=== PATIENT | male | born 1945 | race Caucasian/White ===

== ENCOUNTER → 2017-09-18 | Outpatient (CLI) | payer OTHER, MEDICARE | END | disposition home or self-care (01) | LOC: GMAB 10:59 | PROVIDERS: ATTEND Family Medicine | DX: Z00.01 Encounter for general adult medical examination with abnormal findings (principal); I10 Essential (primary) hypertension; E78.5 Hyperlipidemia, unspecified; Z12.5 Encounter for screening for malignant neoplasm of prostate ==

== ENCOUNTER → 2017-09-20 | Outpatient (CLI) | payer OTHER, MEDICARE ==
--- NOTE | 2017-09-21 15:01 | RAD ---
EXAM DESCRIPTION: Knee,Left Complete CLINICAL HISTORY: KNEE PAIN COMPARISON: September 23, 2015 Findings: 4 standing views of the left knee show no evidence of acute fracture, focal bone destruction, or joint dislocation. There is prominent moderate narrowing of the medial tibiofemoral compartment with mild medial and lateral compartment joint line osteophytes. Mild flattening and irregularity of the weightbearing articular surface of the medial condyle is seen. Osteophyte of the posterior patella are seen without significant narrowing of the patellofemoral compartment. IMPRESSION: Interval worsening of now moderate to severe osteoarthritic changes of the left medial tibiofemoral compartment. Mild osteophytic changes of the patellofemoral and lateral tibiofemoral compartments. Electronically signed by: Angel Zhang MD 09/21/2017 2:59 PM [facility]
--- NOTE | 2017-09-21 15:02 | RAD ---
EXAM DESCRIPTION: Pelvis CLINICAL HISTORY: HIP PAIN COMPARISON: None FINDINGS: Single frontal view the pelvis. No fracture, dislocation or aggressive bone lesion is present. Bone mineralization is normal. Mild bilateral degenerative sacroiliitis. No erosions are seen. No gross soft tissue abnormality. IMPRESSION: Negative for acute pathology. Mild bilateral degenerative sacroiliac disease. No advanced osteoarthritis of the hip joints. Electronically signed by: Jey Harris MD 09/21/2017 3:00 PM [facility]
== END | disposition home or self-care (01) ==
LOC: RAD 09:17
PROVIDERS: ATTEND Orthopaedic Surgery
DX: M25.562 Pain in left knee (principal); M25.552 Pain in left hip

== ENCOUNTER → 2019-01-06 | Outpatient (CLI) | payer OTHER, MEDICARE | LOC: GMAE 10:41 | PROVIDERS: ATTEND Family Medicine | DX: Z00.01 Encounter for general adult medical examination with abnormal findings (principal) ==

== ENCOUNTER → 2019-01-07 | Outpatient (CLI) | payer MEDICARE, OTHER ==
--- NOTE | 2019-01-08 10:27 | US ---
EXAM DESCRIPTION: Aorta: Ultrasound. CLINICAL HISTORY: ENCOUNTER FOR SCREENING FOR OTHER DISORDER COMPARISON: None. TECHNIQUE: Transcutaneous scanning: Two-dimensional and Doppler modes. FINDINGS: Abdominal aorta diameter - Proximal: 2.8 x 2.4 cm. Mid: 2.4 x 1.9 cm. Distal: 2.0 x 1.9 cm. Common Iliac diameter - Right: 10 mm. Left: 10 mm. Other: Minimal intimal wall thickening.. IMPRESSION: Rad [facility] Best Practice recommendations: 2.8 cm abdominal aortic aneurysm suspected in the proximal abdominal aorta. Recommend follow-up every 5 years. Reference: J Vasc Surg 2009 Oct;50(4 Suppl):S2-49. Electronically signed by: Capo Epperson MD 01/08/2019 10:24 AM [facility]
== END ==
LOC: US 10:01
PROVIDERS: ATTEND Family Medicine
DX: Z13.89 Encounter for screening for other disorder (principal)

== ENCOUNTER 2019-01-22 16:48 | Outpatient (CLI) | payer OTHER, MEDICARE ==
[2019-01-22 18:56] VITALS: BP 182/72; TEMP 97; O2SAT 96
== END 2019-01-22 18:00 | disposition home or self-care (01) ==
LOC: TXRM 16:48
PROVIDERS: ATTEND Family Medicine
DX: C61 Malignant neoplasm of prostate (principal)

== ENCOUNTER → 2019-02-20 | Outpatient (CLI) | payer OTHER, MEDICARE ==
--- NOTE | 2019-02-20 14:22 | RAD ---
4 views left knee Indication: KNEE PN Comparison: September 20, 2017 Impression: Progressive moderate to severe medial knee compartment osteoarthritis with near [id number] appearance. Moderate narrowing patellofemoral compartment mild narrowing lateral compartment. Small to moderate tricompartmental joint line osteophytes. Moderate size knee effusion. No acute fracture. Mild varus angulation of the knee. Electronically signed by: Bradly Art MD 02/20/2019 2:19 PM CDT
== END ==
LOC: RAD 08:09
PROVIDERS: ATTEND Orthopaedic Surgery
DX: M17.12 Unilateral primary osteoarthritis, left knee (principal)

== ENCOUNTER → 2019-05-05 | Outpatient (CLI) | payer MEDICARE, OTHER | LOC: GMAE 17:39 | PROVIDERS: ATTEND Family Medicine | DX: I48.2 Chronic atrial fibrillation (principal) ==

== ENCOUNTER → 2019-05-07 | Outpatient (CLI) | payer MEDICARE, OTHER | LOC: RESP 10:04 | PROVIDERS: ATTEND Family Medicine | DX: I48.2 Chronic atrial fibrillation (principal) ==

== ENCOUNTER → 2019-07-23 | Outpatient (CLI) | payer OTHER | LOC: GMAE 10:34 | PROVIDERS: ATTEND Family Medicine | DX: C61 Malignant neoplasm of prostate (principal) ==

== ENCOUNTER → 2019-10-27 | Outpatient (CLI) | payer OTHER | LOC: GMAE 16:56 | PROVIDERS: ATTEND Family Medicine | DX: C61 Malignant neoplasm of prostate (principal) ==

== ENCOUNTER 2020-04-03 15:43 | Emergency (ER) | payer OTHER ==
--- NOTE | 2020-04-03 15:47 | ED.PDOC ---
History of Present Illness - General Time Seen by Provider: 04/03/20 15:46 Source: patient - History of Present Illness Initial Comments: 74 YO male with PMH of HTN, HLD who presents with chief complaint of left shoulder pain. Sudden onset approximately 20 minutes ago while sitting down at rest, located to posterior left shoulder blade region, came on suddenly and lasted for several minutes, described as sharp pain, 8 out of 10 severity, radiated down the upper portion of the left arm, not worse with exertion or with movement of the left arm, no meds taken for relief. Pain lasted for several minutes and resolve spontaneously on his way to the ED. Currently reports 0 out of 10 pain. Denies any chest pain, dyspnea, fevers, chills, sore throat, abdominal pain, nausea, vomiting, leg swelling, urinary symptoms. Denies any recent injury or trauma to the shoulder. No history of similar symptoms in the past. Takes medication for cholesterol and high blood pressure but denies any known history of ND/CAD. PCP is Dr. Lynn. Allergies/Adverse Reactions: Allergies Penicillins Allergy (Verified 04/03/20 16:18) Home Medications: Ambulatory Orders Cyclobenzaprine HCl [Flexeril] 10 mg PO Q8H PRN 30 Days #30 tab 04/03/20 Review of Systems - Review of Systems Review of Systems: 04/03/20 16:00 as per HPI All other Systems: Reviewed and Negative Family Medical History - Family History Mother Family History: No Known Living Status: Physical Exam - Physical Exam General Appearance: Alert, Comfortable, No apparent distress Eye Exam: bilateral normal Ears, Nose, Throat: hearing grossly normal, normal ENT inspection, normal pharynx Neck: non-tender, full range of motion, supple, normal inspection Respiratory: chest non-tender, lungs clear, normal breath sounds, no respiratory distress, no accessory muscle use Cardiovascular/Chest: normal peripheral pulses, regular rate, rhythm, no edema, no gallop, no JVD, no murmur Peripheral Pulses: radial,right: 2+, radial,left: 2+ Gastrointestinal/Abdominal: non tender, soft, no organomegaly Back Exam: normal inspection, no CVA tenderness, no vertebral tenderness Extremity: normal range of motion, non-tender, normal inspection, no pedal edema, no calf tenderness, normal capillary refill 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 Consider also ACS, pneumonia, CHF, cervical radiculopathy, rotator cuff injury, shoulder fracture, other. -Patient stable, NAD, vitals reveal elevated blood pressure 170s/90s but otherwise WNL. Exam pretty unremarkable. -Obtain cardiac work-up, blood work, x-ray chest and left shoulder. 04/03/20 17:05 -Patient remains stable, states no further return of pain, blood pressure remains elevated 170s/80s, vitals otherwise WNL -Blood work is reassuring, initial troponin 0.02, K 3.3 (replaced orally). Patient does have Cr level of 1.47. No prior labs in our system for comparison but suspect chronic in nature (CKD). Pt states his PCP follows his kidney function and he has seen a ingredient scaler helper as an outpatient consultation in the past. -Plan to repeat troponin and EKG in ED. If unchanged and symptoms do not recur, will likely plan to discharge home with close outpatient follow-up. 04/03/20 17:08 -Repeat EKG and troponin level unchanged, patient remained stable, still no return of pain. -Discussed diagnosis of muscle spasm of left shoulder. Advised good hydration, OTC Tylenol as needed, and will give as needed Rx of Flexeril. -DC to home in good condition, return warnings discussed. Ethan Stewart MD Billing #[id number] 04/03/20 15:55 Sodium Chloride 0.9% (Flush) [Saline Flush Syringe] 10 ml IV PRN PRN 04/03/20 16:00 EKG STAT 04/03/20 17:30 EKG STAT 04/04/20 09:00 Pulse Ox Daily Laboratory Results - last 24 hr 04/03/20 04/03/20 04/03/20 16:04 16:04 16:04 WBC 7.0 RBC 5.16 Hgb 16.3 Hct 48.6 MCV 94.1 H MCH 31.7 H MCHC 33.7 RDW 14.0 Plt Count 243 MPV 7.9 Absolute Neuts (auto) 4.40 Absolute Lymphs (auto) 1.80 Absolute Monos (auto) 0.50 Absolute Eos (auto) 0.20 Absolute Basos (auto) 0.10 Neutrophils % 62.7 Lymphocytes % 26.3 Monocytes % 7.3 Eosinophils % 2.7 Basophils % 1.0 Sodium 139 Potassium 3.3 L Chloride 107 Carbon Dioxide 24 Anion Gap 11.3 L BUN 23 H Creatinine 1.47 H BUN/Creatinine Ratio 15.6 Random Glucose 133 H Serum Osmolality 283.1 Calcium 9.0 Total Bilirubin 0.6 AST 20 ALT 20 Alkaline Phosphatase 61 Troponin I < 0.02 B-Natriuretic Peptide 23.8 Serum Total Protein 7.2 Albumin 4.0 Globulin 3.2 Albumin/Globulin Ratio 1.3 04/03/20 17:34 WBC RBC Hgb Hct MCV MCH MCHC RDW Plt Count MPV Absolute Neuts (auto) Absolute Lymphs (auto) Absolute Monos (auto) Absolute Eos (auto) Absolute Basos (auto) Neutrophils % Lymphocytes % Monocytes % Eosinophils % Basophils % Sodium Potassium Chloride Carbon Dioxide Anion Gap BUN Creatinine BUN/Creatinine Ratio Random Glucose Serum Osmolality Calcium Total Bilirubin AST ALT Alkaline Phosphatase Troponin I < 0.02 B-Natriuretic Peptide Serum Total Protein Albumin Globulin Albumin/Globulin Ratio - EKG/XRAY/CT EKG: Sinus - NSR, HR 80, no ST elevations, possible Q wave in lead V3 and inferior leads indicative of old ND, left axis deviation, intervals normal, no prior EKG for comparison. XRAY: chest - No acute processes per my read - Additional EKG/XRAY/Consults XRAY #2: Shoulder, Left - No acute processes per my read Departure - Departure Clinical Impression: Muscle spasm Time of Disposition: 17:44 Disposition: Discharge to Home or Self Care Condition: Good Instructions: Muscle Spasms (DC) Diet: resume usual diet Activity: increase activity as tolerated Referrals: KENDRICK LYNN MD [Primary Care Provider] - 1-2 Weeks Prescriptions: Cyclobenzaprine HCl [Flexeril] 10 mg PO Q8H PRN 30 Days #30 tab PRN Reason: Muscle Spasms Home Medications: Ambulatory Orders Cyclobenzaprine HCl [Flexeril] 10 mg PO Q8H PRN 30 Days #30 tab 04/03/20 Additional Instructions: Remain well-hydrated and advance diet and activity level as tolerated. Continue taking OTC meds for pain relief such as Tylenol 650 mg every 6 hours as needed. You may take the prescribed Flexeril as needed for muscle spasms. Do not drive or operate heavy machinery while taking as it may make you drowsy. Return to the ED right away if you develop any concerning symptoms such as chest pain, shortness of breath, fevers, cough, etc. Follow-up with your primary care doctor is recommended in the next 5 to 7 days for repeat evaluation of your symptoms and to also recheck your blood pressure.
[2020-04-03] MEDS ORDERED: SODIUM CHLORIDE 0.9% (FLUSH) 10 ML SYG IV PRN (15:55)
[2020-04-03] MEDS ORDERED: POTASSIUM CHLORIDE 20 MEQ TAB PO ONE (16:26)
--- NOTE | 2020-04-03 16:35 | RAD ---
EXAM DESCRIPTION: XR Chest,1 View (accession [id number]), XR Shoulder, Left 2 Views (accession [id number]) CLINICAL HISTORY: 74 years Male, acute left shoulder pain COMPARISON: None. FINDINGS: An upright portable view of the chest shows the lungs to be clear except for minimal linear stranding in the lung bases. Heart size appears borderline prominent, although accentuated by technique. There is atherosclerotic change in the thoracic aorta. No evidence of congestive heart failure. Possible slight eventration of the right hemidiaphragm. 2 views of the left shoulder demonstrate no evidence of acute fracture or dislocation or destructive bony lesion. The glenohumeral and acromioclavicular joint spaces appear maintained. There is minimal hypertrophic bony change about the AC joint. IMPRESSION: 1. No radiographic evidence of acute cardiopulmonary disease. 2. No significant bony abnormality identified in the left shoulder. Electronically signed by: Jared Solomon MD 04/03/2020 4:34 PM CDT
--- NOTE | 2020-04-03 16:36 | RAD ---
EXAM DESCRIPTION: XR Chest,1 View (accession [id number]), XR Shoulder, Left 2 Views (accession [id number]) CLINICAL HISTORY: 74 years Male, acute left shoulder pain COMPARISON: None. FINDINGS: An upright portable view of the chest shows the lungs to be clear except for minimal linear stranding in the lung bases. Heart size appears borderline prominent, although accentuated by technique. There is atherosclerotic change in the thoracic aorta. No evidence of congestive heart failure. Possible slight eventration of the right hemidiaphragm. 2 views of the left shoulder demonstrate no evidence of acute fracture or dislocation or destructive bony lesion. The glenohumeral and acromioclavicular joint spaces appear maintained. There is minimal hypertrophic bony change about the AC joint. IMPRESSION: 1. No radiographic evidence of acute cardiopulmonary disease. 2. No significant bony abnormality identified in the left shoulder. Electronically signed by: Jared Solomon MD 04/03/2020 4:34 PM CDT
[2020-04-03 18:05] VITALS: BP 154/80; TEMP 97.2; O2SAT 96
== END 2020-04-03 18:22 | disposition home or self-care (01) ==
LOC: ER 15:43
DX: M62.838 Other muscle spasm (principal); M25.512 Pain in left shoulder; E87.6 Hypokalemia; E78.5 Hyperlipidemia, unspecified; I10 Essential (primary) hypertension; Z79.899 Other long term (current) drug therapy

== ENCOUNTER → 2020-04-20 | Outpatient (CLI) | payer OTHER | LOC: GMAE 11:01 | PROVIDERS: ATTEND Family Medicine | DX: C61 Malignant neoplasm of prostate (principal) ==

== ENCOUNTER → 2020-04-28 | Outpatient (CLI) | payer OTHER | LOC: GMAE 10:44 | PROVIDERS: ATTEND Family Medicine | DX: H57.9 Unspecified disorder of eye and adnexa (principal) ==

== ENCOUNTER → 2020-04-28 | Outpatient (CLI) | payer OTHER ==
--- NOTE | 2020-04-28 14:18 | CT ---
EXAM DESCRIPTION: CT orbits without contrast CLINICAL HISTORY: UNSP DISORDER OF EYE AND ADNEXA COMPARISON: None. TECHNIQUE: Noncontrast transaxial CT of the orbits are obtained with coronal and sagittal reconstructed images. This exam was performed according to our departmental dose-optimization program, which includes automated exposure control, adjustment of the mA and/or kV according to patient size and/or use of iterative reconstruction technique . FINDINGS: Curvilinear radiopaque likely postsurgical structure seen on the lateral aspect of the right ocular globe possibly representing ocular banding device. Correlate with patient surgical history. Evidence of bilateral cataract surgery. No abnormal inflammatory changes in the post coronal soft tissues. Optic nerves are normal and symmetric. The extraocular muscles are normal and symmetric. No significant periorbital soft tissue inflammation or edema. No obvious pituitary mass or abnormality of the optic chiasm. Visualized paranasal sinuses shows focal thickening or mucous retention cysts in the floor of the maxillary sinuses left greater than right measuring up to 1.5 cm on the left. Small amount of fluid in the inferior mastoid air cells is seen bilaterally. Calcifications of the intracranial carotid arteries. Mild mucosal thickening of the anterior medial left sphenoid sinus. No nasal septal deviation. No acute facial bone fracture. The orbits appear intact.. IMPRESSION: No acute abnormality of the orbits or ocular globes on CT imaging. Evidence of bilateral cataract surgery. Probable postsurgical changes to the right ocular globe. Mild subacute to chronic sinus disease is seen. Small bilateral mastoid effusions. Electronically signed by: Angel Zhang MD 04/28/2020 2:16 PM CDT
== END ==
LOC: CT 13:23
PROVIDERS: ATTEND Family Medicine
DX: H57.9 Unspecified disorder of eye and adnexa (principal); J34.9 Unspecified disorder of nose and nasal sinuses; H74.8X3 Other specified disorders of middle ear and mastoid, bilateral; Z98.890 Other specified postprocedural states

== ENCOUNTER → 2020-10-19 | Outpatient (CLI) | payer OTHER | LOC: GMAE 14:13 | PROVIDERS: ATTEND Family Medicine | DX: C61 Malignant neoplasm of prostate (principal) ==

== ENCOUNTER 2020-11-01 16:13 | Emergency (ER) | payer OTHER ==
[2020-11-01] MEDS ORDERED: SODIUM CHLORIDE 0.9% 1000ML 1,000 ML IVS ONE (16:25)
[2020-11-01] MEDS ORDERED: SODIUM CHLORIDE 0.9% (FLUSH) 10 ML SYG IV PRN (16:25)
--- NOTE | 2020-11-01 16:25 | ED.PDOC ---
History of Present Illness - General Chief Complaint: Respiratory Problem Stated Complaint: Covid + and SOB Time Seen by Provider: 11/01/20 16:20 Source: patient - History of Present Illness Initial Comments: At bedside at 1630. 75-year-old male with past medical history of hypertension, chronic kidney disease who was sent over from Dr. Newell's clinic for chief complaint of shortness of breath. Patient reports he first became ill 3 days ago with symptoms of right lower backaches. As he and his were planning to host some people over to their house he decided to get a Covid test which was po sitive at that time. He reports since then he has developed gradually worsening intermittent productive cough and mild dyspnea. Also reports slight decreased appetite and p.o. intake and intermittent mild small-volume watery diarrhea. He has not taken any medications for symptom relief. Describes overall mild to moderate severity of illness. Denies fevers, chills, sore throat, headaches, abdominal pain, nausea/vomiting. Dr. Newell checked a full Covid lab panel at the clinic this afternoon. The patient was noted to have 92% SPO2 on room air but no distress. He was sent to the ED for IV Bamalanivimab as he does not want to be admitted and would like to try continued outpatient management. Allergies/Adverse Reactions: Allergies Penicillins Allergy (Verified 11/01/20 16:34) Home Medications: Ambulatory Orders Cyclobenzaprine HCl [Flexeril] 10 mg PO Q8H PRN 30 Days #30 tab 04/03/20 Review of Systems - Review of Systems Review of Systems: 11/01/20 16:45 as per HPI All other Systems: Reviewed and Negative Past Medical History (General) - Patient Medical History Hx Stroke: No Hx of COPD: No Hx Cardiac Disorders: No Hx Congestive Heart Failure: No Hx Hypertension: Yes Hx Diabetes: No Hx Gastroesophageal Reflux: Yes Hx Cancer: Yes - Prostate - Vaccination History Hx Influenza Vaccination: Yes Hx Pneumococcal Vaccination: Yes - Social History Hx Tobacco Use: Yes Hx Alcohol Use: Yes Hx Substance Use: No Hx Substance Use Treatment: No Hx Depression: No - Female History Patient : No Family Medical History - Family History Mother Family History: No Known Living Status: Physical Exam - Physical Exam General Appearance: Alert, Comfortable, No apparent distress Eye Exam: bilateral normal Ears, Nose, Throat: hearing grossly normal, normal ENT inspection, normal pharynx Neck: full range of motion, supple, normal inspection Respiratory: chest non-tender, normal breath sounds, no respiratory distress, no accessory muscle use, rales - Faint bibasilar w/o rhonchi/wheezing Cardiovascular/Chest: normal peripheral pulses, regular rate, rhythm, no edema, no gallop, no JVD, no murmur Peripheral Pulses: radial,right: 2+, radial,left: 2+ Gastrointestinal/Abdominal: non tender, soft, no organomegaly Back Exam: normal inspection, no CVA tenderness, no vertebral tenderness Extremity: normal range of motion, non-tender, normal inspection, no pedal edema, no calf tenderness 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 Consider also other viral etiologies, bacterial PNA. -Labs from clinic reviewed - pertinent for COVID-19+, neg for flu, other viral pathogens, neg also for mycoplasma pneum, pertussis, chlamydia pneum. Strep+ (has Rx from clinic). Serum WBC 6,100 with 71% segs, 15% lymphs, no bands. D- dimer upper limit normal 458, fibronogen 511, CRP 1.0, BUN 22, Cr 2.5 (baseline appears ~1.5). -will add CXR -Patient stable upon ED arrival, SPO2 92% on room air, no respiratory distress, moving air well throughout but faint crackles noted at lung bases. -I discussed with the patient my concern of his worsening creatinine level from his baseline/acute kidney injury likely due to dehydration from poor oral fluid intake due to COVID-19 viral infection. I advised hospital admission but he really would like to try trial of outpatient management and Bamlanivimab. Thus, will give 1 L NS bolus in ED and BAM and plan for dc home with close outpatient f/u and repeat renal labs in 2-3 days time. 11/01/20 19:33 -Patient has completed his ED treatment and BAM infusion without complications. Will discharge home and fair condition, strict ED return warnings discussed. Follow-up with PCP in the next 2 to 3 days for repeat renal lab evaluation Ethan Stewart MD Billing #[id number] - EKG/XRAY/CT XRAY: chest - Patchy bibasilar airspace opacities, left greater than right, consistent with COVID-19 pneumonia per my read. Departure - Departure Clinical Impression: COVID-19, Dehydration Time of Disposition: 19:30 Disposition: Discharge to Home or Self Care Condition: Fair Departure Forms: ED Discharge - Pt. Copy, Patient Portal Self Enrollment Instructions: Coronavirus Disease 2019 (COVID-19), Dehydration, Adult (DC) Diet: resume usual diet Activity: increase activity as tolerated Referrals: KENDRICK PRICE MD [Primary Care Provider] - 1-2 Weeks Home Medications: Ambulatory Orders Cyclobenzaprine HCl [Flexeril] 10 mg PO Q8H PRN 30 Days #30 tab 04/03/20 Additional Instructions: Remain well-hydrated and gradually advance your diet and activity level as tolerated. Take the antibiotics as previously prescribed for strep throat and finish the full course even if well. Return to the ED if you develop new or concerning symptoms such as worsening shortness of breath, chest pain, intractable nausea and vomiting, oxygen saturation less than 92%, etc. You will need to continue self quarantine for a total of 10 days since your positive test and be at least 3 days without cough or fever before discontinuing isolation. Follow-up with your primary care doctor is recommended in the next 1 to 2 days for repeat lab work of your kidney function as discussed.
--- NOTE | 2020-11-01 16:51 | RAD ---
EXAM: XR Chest, 1 View CLINICAL HISTORY: COVID+, dyspnea TECHNIQUE: Frontal view of the chest. COMPARISON: 04/03/2020 FINDINGS: Lungs: There is now consolidation in the left base. There is very vague groundglass opacity present in the right lung. Pleural space: Small left pleural effusion present. Heart: Stable cardiac prominence. Mediastinum: No abnormality noted. Bones/joints: No osseous destruction or sclerosis noted. IMPRESSION: 1. Vague groundglass infiltrate right lung which is a typical imaging features covid pneumonia. 2. There is consolidative infiltrate within the left base and small left pleural effusion consistent with pneumonia. Electronically signed by: Kell Castorena MD 11/01/2020 4:49 PM [facility]
[2020-11-01 20:28] VITALS: BP 102/74; TEMP 97.2; O2SAT 94
== END 2020-11-01 19:55 | disposition home or self-care (01) ==
LOC: ER 16:13
DX: U07.1 COVID-19 (principal); E86.0 Dehydration; I10 Essential (primary) hypertension; K21.9 Gastro-esophageal reflux disease without esophagitis; Z85.46 Personal history of malignant neoplasm of prostate; Z87.891 Personal history of nicotine dependence; Z88.0 Allergy status to penicillin
CPT/HCPCS: 71045; J7030

== ENCOUNTER → 2020-11-01 | Outpatient (CLI) | payer OTHER | LOC: GMAM 12:43 | PROVIDERS: ATTEND Family Medicine | DX: U07.1 COVID-19 (principal); R71.8 Other abnormality of red blood cells; R09.02 Hypoxemia ==

== ENCOUNTER → 2020-12-20 | Outpatient (CLI) | payer OTHER | LOC: GMAE 15:14 | PROVIDERS: ATTEND Family Medicine | DX: I50.9 Heart failure, unspecified (principal) ==

== ENCOUNTER → 2020-12-22 | Outpatient (CLI) | payer OTHER | LOC: LAB.O 09:32 | PROVIDERS: ATTEND Internal Medicine Nephrology | DX: N17.9 Acute kidney failure, unspecified (principal) ==

== ENCOUNTER 2020-12-24 15:12 | Emergency (ER) | payer OTHER ==
[2020-12-24] MEDS ORDERED: SUCCINYLCHOLINE CHLORIDE 200 MG/10 ML VIAL ONE (15:20)
[2020-12-24] MEDS ORDERED: ETOMIDATE INJECTION 2 MG/ML 20ML VIAL IV ONE (15:22)
[2020-12-24] MEDS ORDERED: VECURONIUM BROMIDE 10 MG VIAL IV ONE (15:24)
[2020-12-24] MEDS ORDERED: WATER FOR INJ 10 ML VIAL INJ ONE (15:24)
--- NOTE | 2020-12-24 15:41 | ED.PDOC ---
History of Present Illness - General Time Seen by Provider: 12/24/20 15:27 Additional Information: Patient is a 75-year-old male who presents to the ED in full cardiac arrest. Per , patient and had just exited the bank and sere in the car when patient began to clutch his chest and groan. sped as fast as she could to the ED and patient collapsed and went into full cardiac arrest in our parking lot. and family indicate that patient has an adverse cardiac history. He was in [facility] ICU approximately 4 weeks ago for 2 weeks for evaluation and treatment of what appears to be new onset CHF with atrial fibrillation with RVR. Patient also developed acute renal insufficiency. He had a right heart cath but not a full heart cath because he was not able to tolerate the entire procedure. Family indicates that 4 days ago he converted from atrial fibrillation to normal sinus rhythm and just today he was started on Eliquis. History is otherwise unknown. - History of Present Illness Allergies/Adverse Reactions: Allergies Penicillins Allergy (Verified 11/01/20 16:34) Home Medications: Ambulatory Orders Cyclobenzaprine HCl [Flexeril] 10 mg PO Q8H PRN 30 Days #30 tab 04/03/20 Review of Systems - Review of Systems Unable to Obtain Due To: condition Past Medical History (General) - Patient Medical History Hx Stroke: No Hx of COPD: No Hx Cardiac Disorders: No Hx Congestive Heart Failure: No Hx Hypertension: Yes Hx Diabetes: No Hx Gastroesophageal Reflux: Yes Hx Cancer: Yes - Prostate - Vaccination History Hx Influenza Vaccination: Yes Hx Pneumococcal Vaccination: Yes - Social History Hx Tobacco Use: Yes Hx Alcohol Use: Yes Hx Substance Use: No Hx Substance Use Treatment: No Hx Depression: No - Female History Patient : No Family Medical History - Family History Mother Family History: No Known Living Status: Physical Exam - Physical Exam General Appearance: Other - Patient is in full cardiac arrest and CPR is in progress. He is unresponsive. Eyes, Ears, Nose, Throat Exam: other - Pharynx is clear. Pupils are 3 mm and reactive. Neck: other - Trachea is midline Respiratory: other - No spontaneous respirations, patient is being bagged, coarse of breath sounds bilaterally. Cardiovascular/Chest: other - Peripheral pulses are absent and there is no heart sounds appreciated. CPR is in progress. Gastrointestinal/Abdominal: soft Extremity: normal inspection Neurologic: other - Patient is unresponsive Skin Exam: warm/dry Progress - Progress Progress: 12/24/20 15:48 Patient presented in full cardiac arrest in the parking lot. Patient was brought immediately into the ED and CPR was immediately begun. Patient had no spontaneous respirations or pulse on arrival. IV was placed and patient was immediately intubated with a single attempt with a 7.5 ET tube. After tube placement patient began to awaken and become slightly arousable and etomidate and vecuronium was given for sedation and paralysis. Patient is EKG shows atrial fibrillation with RVR and Cardizem has been given. Rectal aspirin ordered and I will place a central line. I have spoken with Dr. Henriquez, ED physician, at [facility] who accepts patient ED to ED transfer. 12/24/20 15:51 EKG: Atrial fibrillation, rate 171, left axis deviation, normal QRS, Q waves inferiorly, poor R wave progression, normal T waves, nonspecific ST changes, negative STEMI. 12/24/20 16:22 Central line placed without difficulty and patient is now on a Cardizem drip. Patient's chest x-ray shows what appears to be multifocal pneumonia versus CHF. Patient is Covid positive and I suspect this is Covid pneumonia. IV antibiotics have been given and patient cultured. Patient has an elevated D- dimer and patient has empirically been started on heparin drip. Patient's initial troponin level is not elevated. 12/24/20 16:33 EMS is in the ED to transport patient to [facility]. Patient is stable at this time and medically clear for transfer. Procedures - Central Line Right Internal jugular vein Central Line Lumen: triple Central Line Procedure Prep: betadine prep, sterile drapes applied, sterile dressing applied Complications: none Central Line Post Position: sutured, good blood return, position confirmed w/ CXR - Intubation Time of Intubation: 03:30 Intubation Method: orotracheal Tube Size (cm): 7.5 Breath Sounds after Intubation: equal Intubation Complications: no complications Post Intubation Xray: Yes Departure - Departure Clinical Impression: Cardiac arrest, COVID-19, Pneumonia due to COVID-19 virus, Elevated d-dimer Time of Disposition: 16:24 Disposition: Transfer to Hospital Condition: Serious Referrals: KENDRICK PRICE MD [Primary Care Provider] - 1-2 Weeks Home Medications: Ambulatory Orders Cyclobenzaprine HCl [Flexeril] 10 mg PO Q8H PRN 30 Days #30 tab 04/03/20 Critical Care Note - Critical Care Note Total Time (mins): 30 Decision To Admit - Decistion To Admit Decision to Admit Date: 12/24/20 Decision to Admit Time: 16:25
[2020-12-24] MEDS ORDERED: SODIUM CHLORIDE 0.9% 1000ML 1,000 ML IVS ONE ×2 (15:44→15:46)
[2020-12-24] MEDS ORDERED: SODIUM CHLORIDE 0.9% 1000ML 1,000 ML ONE (15:45)
[2020-12-24] MEDS ORDERED: ASPIRIN SUPP 600 MG SUP PR ONE (15:46)
--- NOTE | 2020-12-24 15:53 | RAD ---
EXAM DESCRIPTION: Chest,1 View CLINICAL HISTORY: 75 years Male, Arrest COMPARISON: 11/01/2020 TECHNIQUE: Single view radiograph of the chest. IMPRESSION: Enlarged cardiac silhouette. Partially calcified aorta. Endotracheal tube in place terminating 3.7 cm above the mirlande. Nasogastric tube coiled within the stomach. Interval development of severe airspace opacification in the right lung and mildly increased in the left mid and lower lung, likely representing worsening asymmetric pulmonary edema versus multifocal pneumonia or viral infection. No pleural effusion. No pneumothorax. No pleural effusion or pneumothorax. Included osseous structures intact. Electronically signed by: Brent Barclay MD 12/24/2020 3:52 PM [employer]GRAM [employer]GER
[2020-12-24] MEDS ORDERED: diltiaZEM DRIP 125 MG in SODIUM CHLORIDE 0.9% 100ML 100 ML IVPB SCH (16:00)
[2020-12-24] MEDS ORDERED: CEFEPIME 2 GM in SODIUM CHL 0.9% 100ML MINI-BAG 100 ML IVPB ONE (16:20)
[2020-12-24] MEDS ORDERED: MEROPENEM 1 GM in SODIUM CHL 0.9% 50ML MIN-BAG+ 50 ML IVPB ONE (16:20)
[2020-12-24] MEDS ORDERED: MIDAZOLAM INJ 5 MG/5 ML VIAL IV ONE (16:28)
[2020-12-24] MEDS ORDERED: HEPARIN PREMIX 25,000 UNITS in PREMIX BAG 1 BAG IVS SCH (16:30)
[2020-12-24] MEDS ORDERED: MIDAZOLAM INJ 25 MG in SODIUM CHLORIDE 0.9% 50ML 25 ML IVPB SCH (16:30)
--- NOTE | 2020-12-24 16:43 | RAD ---
EXAM DESCRIPTION: Chest,1 View CLINICAL HISTORY: check central line placement FINDINGS/ IMPRESSION: Comparison 12/24/2020 at 3:40 PM Interval right internal jugular central venous line distal tip in the superior vena cava. No pneumothorax. Endotracheal tube distal tip at the inferior margin of the clavicles Mild cardiomegaly. Atherosclerotic aorta. Diffuse alveolar infiltrate throughout the majority of the right lung with slightly better aeration in the right lung base. Interstitial and groundglass infiltrates left perihilar and left lung base similar to previous study. Nonspecific, likely infection. COVID-19 could give this appearance. Electronically signed by: Sim Portillo MD 12/24/2020 4:41 PM [employer]
[2020-12-24 17:29] VITALS: BP 147/107; TEMP 97.6; O2SAT 96
== END 2020-12-24 17:26 | disposition short-term general hospital (02) ==
LOC: ER 15:12
DX: I46.9 Cardiac arrest, cause unspecified (principal); U07.1 COVID-19; J12.82 Pneumonia due to coronavirus disease 2019; R79.89 Other specified abnormal findings of blood chemistry; I48.91 Unspecified atrial fibrillation; I10 Essential (primary) hypertension; K21.9 Gastro-esophageal reflux disease without esophagitis; Z85.46 Personal history of malignant neoplasm of prostate; Z87.891 Personal history of nicotine dependence; Z88.0 Allergy status to penicillin; Z79.01 Long term (current) use of anticoagulants
CPT/HCPCS: 31500; 36415; 36600; 71045; 80053; 82803; 82805; 82948; 83605; 84484; 85025; 85379; 87635; 92950; 93005; 94002; A4216; J0330; J1644; J2250; J7030; J7050